=== PATIENT | female | born 1965 | race Caucasian/White ===

== ENCOUNTER 2018-03-29 15:31 | Outpatient (CLI) | payer OTHER, SELFPAY ==
--- NOTE | 2018-04-26 17:21 | MMO ---
BILATERAL SCREENING MAMMOGRAM: Date: 03/29/18 HISTORY: 52-year-old female. Routine screening mammography. COMPARISON: Prior mammograms are not available. Therefore, the current study will be treated as a baseline mammog elsi. TECHNIQUE: CC and MLO views of both breasts are submitted for interpretation. This patient's mammogram was reviewed with the assistance of computer-aided detection. FINDINGS: The breasts are composed of scattered fibroglandular tissue. Bilaterally, no suspicious dominant mass , architectural distortion, or suspicious calcifications. IMPRESSION: BIRADS 1: Negative RECOMMENDATION: Annual mammogram. POS: AUTUMN
== END 2018-03-29 15:32 | disposition home or self-care (01) ==
LOC: SCSMAMMO 15:31
PROVIDERS: ATTEND Family Medicine
DX: Z12.31 Encounter for screening mammogram for malignant neoplasm of breast (principal)
CPT/HCPCS: 77067

== ENCOUNTER 2019-05-29 13:01 | Outpatient (CLI) | payer SELFPAY ==
--- NOTE | 2019-05-29 14:42 | ULT ---
TRANSABDOMINAL AND ENDOVAGINAL PELVIC ULTRASOUND: HISTORY: Postmenopausal female. Pelvic pain. FINDINGS: Limited evaluation the uterus. No obvious myometrial masses. Uterus measures 4.0 x 8.3 x 6.0 cm Endometrium: Poorly visualized. Left and right ovary: Not appreciated due to bowel gas. No obvious fluid in the left or right adnexa. No obvious masses. IMPRESSION: Limited evaluation due to bowel gas. Grossly no abnormality. If there are persistent symptoms or ther e is a history of bleeding, consider pelvic MRI. CODE T Transcribed Date/Time: 05/29/2019 2:44 PM
== END 2019-05-29 13:02 | disposition home or self-care (01) ==
LOC: SCSRAD 13:01
PROVIDERS: ATTEND Nurse Practitioner
DX: R10.2 Pelvic and perineal pain (principal)
CPT/HCPCS: 76856